=== PATIENT | male | born 1980 | race Caucasian/White ===

== ENCOUNTER 2021-07-09 18:52 | Emergency (ER) | payer OTHER ==
[~2021-07-09] VITALS: Ht 177.8 cm; Wt 83.9 kg
[2021-07-09 19:51] VITALS: BP 146/100
--- NOTE | 2021-07-09 21:37 | NUR ---
Patient discharged to home in stable condition. Written and verbal after care instructions given. Patient verbalizes understanding of instruction. Pt ambulatory with a steady gait
== END 2021-07-09 21:37 | disposition home or self-care (01) ==
LOC: ER 18:59
DX: S42.031A Displaced fracture of lateral end of right clavicle, initial encounter for closed fracture (principal); S22.31XA Fracture of one rib, right side, initial encounter for closed fracture; Z60.2 Problems related to living alone; V19.88XA Pedal cyclist (driver) (passenger) injured in other specified transport accidents, initial encounter; Y93.55 Activity, bike riding; Y92.89 Other specified places as the place of occurrence of the external cause; Y99.8 Other external cause status
CPT/HCPCS: 71100-TC; 73000-TC